=== PATIENT | female | born 1985 | race Caucasian/White ===

== ENCOUNTER 2017-06-10 20:59 | Inpatient (IN) | payer MEDICAID ==
[~2017-06-10] VITALS: Ht 157.5 cm; Wt 78.0 kg
[~2017-06-10 20:59] MED LIST: PREN1TAB49 PO
--- NOTE | 2017-06-10 21:51 | HP ---
Date/Time of Note Date/Time of Note DATE: 06/10/17 TIME: 21:49 OB - History Hx of Present Chief Complaint: contractions Estimated Due Date: Jul 08, 2017 : 4 Para: 33 Spontaneous : 0 Therapeutic : 0 Care: Good Care Obstetrical Complications: None Medical Complications: None Past Family/Social History * Past Medical, Surgical, Family and Obstetric Histories reviewed from chart. OB Admission Exam Physical Exam HEENT: WNL Heart: Rhythm Normal Lungs: Clear, Equal Abdomen: WNL Extremities: Normal Reflexes: Normal Cervical Dilatation: 3cm Effacement: 50% Station: -2 Membranes: Intact Heart Rate: 130's Accelerations: Accelerations Present Decelerations: No Decelerations Contractions on Admission: < 5 Minutes Apart OB Assessment/Plan Reason for admission: labor Plan: Other Other plan: IV magnesium sulfate IM betamethasone PATTIE BOOTH MD Jun 10, 2017 21:51
[2017-06-10] MEDS ORDERED: MAGNESIUM SULFATE 4 GM/100 ML 100 ML IV ONE (22:00)
--- NOTE | 2017-06-10 22:30 | TRIAGE ---
OB Triage Datetime Report Generated by CPN: 06/10/2017 22:30 Datetime: 06/10/2017 21:45 Stage of : OB Triage Vaginal Exam Dilatation (cms): 2.5 Effacement (%): 50 Station: -2 Exam By: LYLA LANDRUM Datetime: 06/10/2017 21:36 Stage of : OB Triage Maternal Assessment Level of Consciousness: Fully Conscious DTR's/Clonus: DTRs 2+; No Clonus DTR's/Clonus: DTRs Absent; DTRs 2+ Headache: Denies Headache: Denies Blurred Vision: No Respiratory Effort: Unlabored; Regular Rhythm; Equal Expansion Breath Sounds, Left: Clear and Equal Breath Sounds, Right: Clear and Equal Nausea/Vomiting: Denies RUQ Epigastric Pain: Denies Lower Extremities Edema: None Upper Extremities Edema: None Facial Edema: None Temperature Route: Oral Fall Risk Assessment History of Falling: (0) No Secondary Diagnosis: (0) No Ambulatory Aid: (0) Bedrest/Nurse Assist IV Therapy: (0) No Gait: (0) Normal/Bedrest/Immobile Mental Status: (0) Oriented to Own Ability Fall Score: 0 Fall Risk Score Definition: No Risk: No action required Labor Evaluation Frequency: 2-4 Monitor Mode: External Duration (sec)2399: 50-60 Quality: Moderate Pattern: Normal: <= 5 Contractions in 10 Minutes Resting Tone [place]: Relaxed Heart Rate FHR Baseline Rate: 135 Monitor Mode: External US Variability: Moderate 6-25 bpm Accelerations: 15X15 Decelerations: None Category: Category I Pain Assessment Pain Scale: 6 Pain Presence: Intermittent Pain Type: Contraction Pain Location: Abdomen Pain Goal: 3 Pain Relief Measures: Comfort Measures Datetime: 06/10/2017 21:30 Time of Arrival: 06/10/2017 20:50 EGA: 36.0 Arrived By: Ambulatory Arrived From: Home Chief Complaint: PT C/O ABDOMEN PAIN Movement: Present Contractions: Regular Time Contractions Began: 06/10/2017 17:00 Rupture of Membranes: Denies Vaginal Discharge: Denies Recent Sexual Intercouse: Denies Abdominal Trauma: Not Applicable Patient Complaints: Contractions Time Provider Notified: 06/10/2017 21:42 Provider Notified: DR BOOTH Initial Plan: [facility] , INITIAL ASSESSMENT, NOTIFY
--- NOTE | 2017-06-10 22:43 | TRIAGE ---
OB Triage Datetime Report Generated by CPN: 06/10/2017 22:43 Datetime: 06/10/2017 22:20 Stage of : OB Triage Level of Consciousness: Fully Conscious DTR's/Clonus: DTRs 2+; No Clonus DTR's/Clonus: DTRs Absent; DTRs 2+ Headache: Denies Headache: Denies Breath Sounds, Left: Clear and Equal Breath Sounds, Right: Clear and Equal Nausea/Vomiting: Denies RUQ Epigastric Pain: Denies Frequency: 2-4 Monitor Mode: External Duration (sec)2399: 40-60 Quality: Moderate Pattern: Normal: <= 5 Contractions in 10 Minutes Resting Tone [place]: Relaxed FHR Baseline Rate: 135 Monitor Mode: External US Variability: Moderate 6-25 bpm Accelerations: 15X15 Decelerations: None Category: Category I Pain Scale: 6 Pain Presence: Intermittent Pain Type: Contraction Pain Location: Abdomen Pain Goal: 3 Pain Relief Measures: Comfort Measures Datetime: 06/10/2017 21:42 Stage of : OB Triage Dilatation (cms): 2.5 Effacement (%): 50 Station: -2 Exam By: DR BOOTH Datetime: 06/10/2017 21:36 Fall Score: 0 Fall Risk Score Definition: No Risk: No action required Datetime: 06/10/2017 21:30 EGA: 36.0 Datetime: 06/10/2017 21:17 Stage of : OB Triage
[2017-06-10] MEDS: LACTATED RINGER'S 1,000 ML IV SCH (22:56)
[2017-06-10 23:07] LABS: BASOPHILS % 0.1 % (0.0-2.0); EOSINOPHILS # 0.1 10^3/ul (0.0-0.5); EOSINOPHILS % 1.2 % (0.0-7.0); HEMATOCRIT 33.6 % (37.0-47.0); HEMOGLOBIN 11.1 g/dl (12.0-16.0); LYMPHOCYTES # 1.7 10^3/ul (0.8-2.9); LYMPHOCYTES % 24.8 % (15.0-51.0); MEAN CORPUSCULAR HEMOGLOBIN 31.3 pg (29.0-33.0); MEAN CORPUSCULAR VOLUME 94.6 fl (82.0-101.0); MEAN PLATELET VOLUME 12.9 fl (7.4-10.4); MONOCYTE # 0.5 10^3/ul (0.3-0.9); MONOCYTES % 7.8 % (0.0-11.0); NEUTROPHIL # 4.6 10^3/ul (1.6-7.5); NEUTROPHILS % 65.7 % (39.0-77.0); PLATELET COUNT 146 10^3/UL (140-415); RED BLOOD COUNT 3.55 10^6/ul (4.20-5.40); RED CELL DISTRIBUTION WIDTH 13.7 % (11.5-14.5); WHITE BLOOD COUNT 6.9 10^3/ul (4.8-10.8)
[2017-06-10] MEDS: BETAMET NA PHOS/AC(6 MG/ML) 5ML INJ IM SCH (23:08)
[2017-06-10 23:19] VITALS: Ht 157.5 cm; Wt 78.0 kg
[2017-06-10 23:20] VITALS: BP 93/56; PULSE 80; RESP 18
[2017-06-10 23:28] LABS: INR 0.87; PROTIME 11.8 Sec (12.2-14.2); PT RATIO 0.9
[2017-06-10 23:29] LABS: PARTIAL THROMBOPLASTIN TIME 27.3 Sec (25.0-35.0)
--- NOTE | 2017-06-10 23:43 | RADRPT ---
PROCEDURE: US OB. CLINICAL INDICATION: labor at 36-week gestational age. TECHNIQUE: Multiple sonographic images of the uterus were obtained. The images were revi ewed on a PACS workstation. COMPARISON: No prior studies are available for comparison. FINDINGS: There is a single live intrauterine gestation. heart rate is 168 beats per minute. Measurements were made in order to determine age. The results are as follows: BPD = 8.20 cm. HC = 30.25 cm. AC = 32.11 cm. FL = 7.00 cm. Estimated weight is 2664 +/- 400 grams. LMP growth percentile is 34 %. Menstrual age by ultrasound dates is 34 weeks 4 days. The estimated date of delivery is 07/18/2017. Amniotic fluid index is 6.5 cm. Position is cephalic and placenta is left lateral grade II. There is no evidence for an abruption or placenta previa. IMPRESSION: 1. Single live intrauterine gestation of 34 weeks 4 days menstrual age by ultrasound dates. 2. The estimated date of delivery is 07/18/2017. RPTAT: QQ .Miguel Birmingham MD, MD Date Time Electronically viewed and signed by .Miguel Birmingham MD, on 06/10/2017 23:43 .R/
[2017-06-11] MEDS: MAGNESIUM SULFATE 20 GM/500 ML 500 ML IV SCH ×3 (00:13→18:30)
[2017-06-11] MEDS: LACTATED RINGER'S 1,000 ML IV SCH ×3 (08:32→21:50)
[2017-06-11] MEDS: PRENATAL VITAMIN PO SCH (08:33)
--- NOTE | 2017-06-11 17:50 | QN ---
Documentation Comment 32 years old EDC July 08 was admitted for labor with ANOOP 6.5, she was placed on magnesium sulfate for labor, she still has occasional contraction but not strong ,pelvic examination cervix ,2CM 50-60% effaced vertex at -2 station there has been no cervical change since admission however since her amniotic fluid is low at 6.5 level Recommending to repeat ultrasound for ANOOP in the morning if ANOOP is 10 or higher she may be discharged home, if ANOOP is at the same level or lower considering perinatology consult . ASHLEY BAEKR MD Jun 11, 2017 17:46
--- NOTE | 2017-06-11 18:04 | RADRPT ---
PROCEDURE: US OB. CLINICAL INDICATION: labor, premature rupture of membranes TECHNIQUE: Transabdominal OB views of the pelvis are available for review. COMPARISON: June 10, 2017 FINDINGS: Within the uterus, there is a single, live intrauterine . The presentation is cephalic. Th e heart rate is 123 beats per minute. The amniotic fluid index in four quadrants is 8.5 cm. The placenta is noted to be left lateral and grade 3. There are no findings of abruption or previa. The biophysical profile score is 8/8. IMPRESSION: 1. Single live intrauterine with an amniotic fluid index of 8.5 cm. The biophysical prof ile score is 8/8. 2. The placenta is left lateral and grade 3. There are no findings of abruption or previa. RPTAT: QQ .Temitope Mayberry MD, Date Time Electronically viewed and signed by .Temitope Mayberry MD, on 06/11/2017 18:03 .F/
[2017-06-11] MEDS: BETAMET NA PHOS/AC(6 MG/ML) 5ML INJ IM SCH (23:02)
--- NOTE | 2017-06-12 08:39 | RADRPT ---
PROCEDURE: US evaluation of amniotic fluid volume. CLINICAL INDICATION: Low amniotic fluid volume. TECHNIQUE: Multiple sonographic images of the gravid uterus were obtained utilizing birch-scale arpita ging. Sagittal and transverse images were obtained. The images were reviewed on a PACS workstation . ANOOP was measured. COMPARISON: 06/11/2017. FINDINGS: There is a single live intrauterine . heart rate is 121 beats per minute. Position is cephalic. Placenta is fundal grade II with no abruption or previa. ANOOP is 8.9 cm. (Normal = 5-20 cm.) IMPRESSION: 1. ANOOP is 8.9 cm. RPTAT: QQ .Miguel Birmingham MD, MD Date Time Electronically viewed and signed by .Miguel Birmingham MD, on 06/12/2017 08:39 .R/
[2017-06-12] MEDS: PRENATAL VITAMIN PO SCH (09:58)
[2017-06-12] MEDS: LACTATED RINGER'S 1,000 ML IV SCH (09:58)
--- NOTE | 2017-06-12 11:28 | PDOCDIS ---
Discharge Instructions CONDITION Patient Condition: Good HOME CARE INSTRUCTIONS: Diet Instructions: Regular ACTIVITY: Activity Restrictions: No Sexual Activity Bathing Restrictions: Shower FOLLOW UP/APPOINTMENTS Follow-up Plan Patient discharged home at 36 6 weeks plus with the recommendation to be seen at perinatology clinic follow-up on amniotic fluid index 2 times per week, advised oral hydration , keep to appointment for Friday triage unit for NST ASHLEY PITTMAN MD Jun 12, 2017 11:28
--- NOTE | 2017-06-12 11:39 | DS ---
Date/Time of Note Date/Time of Note DATE: 06/12/17 TIME: 11:30 Discharge Summary Admission/Discharge Info Admit Date/Time Jun 10, 2017 at 21:42 Discharge Date/Time 08/2017 at 11:00 Discharge Diagnosis 36 weeks plus gestation at first she was admitted for possible labor during the evaluation noted low ANOOP she was placed on magnesium sulfate to abort traction, received IV hydration today her ANOOP E.9 heart tracing within normal, network cabler recommended to be discharged home with follow-up instruction seen at perinatology clinic 2 times per week follow-up on her amniotic fluid index. Patient Condition: Good Consults Perinatologist Procedures Treatment for term labor, low ANOOP Hx of Present Illness 6 weeks 2 days in labor workup for amniotic fluid index [facility] responded well to the treatment Home Meds Reported Medications Vits W-Ca,Fe,Fa(<1MG) () 1 Tab Tablet, 1 TAB PO DAILY 10/09/12 Follow-up Plan Patient discharged home at 36 weeks ,2 days with recommendation to be seen at perinatology clinic for follow-up on her amniotic fluid index 2 times per week, advised oral hydration , to keep appointment for Friday with triage unit for NST ANOOP. Primary Care Provider Care Physician No Primary Time spent on discharge: < 30 minutes Pending Labs Laboratory Tests Test 06/11/17 12:01 06/11/17 18:05 Magnesium Level 5.0mg/dl (1.7-2.5) 5.3mg/dl (1.7-2.5) ASHLEY BAKER MD Jun 12, 2017 11:39
== END 2017-06-12 17:40 | disposition home or self-care (01) | DRG 780 ==
LOC: OBT 20:59 → L-D 21:00 → OBG 21:42 → OBT 21:42
PROVIDERS: ADMIT Obstetrics & Gynecology; ATTEND Obstetrics & Gynecology
DX: O47.03 False labor before 37 completed weeks of gestation, third trimester (principal); Z3A.33 33 weeks gestation of pregnancy
CPT/HCPCS: 76815; 76818; 83735; 85025; 85610; 85730; 86900; 86901; G0463; J0702; J3475; J7120

== ENCOUNTER 2017-07-09 09:22 | Inpatient (IN) | payer MEDICAID ==
[~2017-07-09] VITALS: Ht 157.5 cm; Wt 78.5 kg
[2017-07-09 09:36] VITALS: BP 104/69; PULSE 97; RESP 18; Ht 157.5 cm; Wt 78.5 kg
--- NOTE | 2017-07-09 10:12 | TRIAGE ---
OB Triage Datetime Report Generated by CPN: 07/09/2017 10:10 Datetime: 07/09/2017 09:40 Vaginal Exam Dilatation (cms): 4.0 Effacement (%): 70 Station: -2 Exam By: maty Vaginal Bleeding: Normal Show Cervix, Consistency: Soft Cervix, Position: Midposition Datetime: 07/09/2017 09:33 Assessment Type: Triage Maternal Assessment Level of Consciousness: Fully Conscious DTR's/Clonus: DTRs 2+; No Clonus Headache: Denies Blurred Vision: No Respiratory Effort: Unlabored; Regular Rhythm; Equal Expansion Breath Sounds, Left: Clear and Equal Breath Sounds, Right: Clear and Equal Nausea/Vomiting: Denies RUQ Epigastric Pain: Denies Lower Extremities Edema: None Degree: None Upper Extremities Edema: None Degree: None Facial Edema: None Fall Risk Assessment History of Falling: (0) No Secondary Diagnosis: (0) No Ambulatory Aid: (0) Bedrest/Nurse Assist IV Therapy: (20) Yes Gait: (0) Normal/Bedrest/Immobile Mental Status: (0) Oriented to Own Ability Fall Score: 20 Fall Risk Score Definition: No Risk: No action required Datetime: 07/09/2017 09:32 Time of Arrival: 07/09/2017 09:14 EGA: 40.1 Arrived By: Ambulatory Arrived From: Home Chief Complaint: PT HERE C/O UC'S SINCE 0600 Movement: Present Contractions: Irregular Rupture of Membranes: Denies Vaginal Bleeding: None Vaginal Discharge: Denies Recent Sexual Intercouse: Denies Abdominal Trauma: Not Applicable Patient Complaints: Contractions; Cramping; Back Pain Time Provider Notified: 07/09/2017 10:00 Provider Notified: OLIVIA Initial Plan: SVE/EFM Datetime: 07/09/2017 09:30 Monitor Mode: External Monitor Mode: External US Datetime: 06/12/2017 17:40 Labor Evaluation Frequency: 0 Monitor Mode: External Resting Tone [employer]: Relaxed Heart Rate FHR Baseline Rate: 130 Monitor Mode: External US FHR Baseline Changes: No Baseline Change Variability: Moderate 6-25 bpm Accelerations: 15X15 Decelerations: None Category: Category I Datetime: 06/12/2017 17:27 Labor Evaluation Frequency: 0 Monitor Mode: External Resting Tone [employer]: Relaxed Heart Rate FHR Baseline Rate: 120 Monitor Mode: External US FHR Baseline Changes: No Baseline Change Variability: Moderate 6-25 bpm Accelerations: 15X15 Decelerations: None Category: Category I Datetime: 06/12/2017 16:23 Labor Evaluation Frequency: 0 Monitor Mode: External Pattern: Normal: <= 5 Contractions in 10 Minutes Resting Tone [employer]: Relaxed Heart Rate FHR Baseline Rate: 120 Monitor Mode: External US FHR Baseline Changes: No Baseline Change Variability: Moderate 6-25 bpm Accelerations: 15X15 Decelerations: None Category: Category I Datetime: 06/12/2017 15:00 Labor Evaluation Frequency: 0 Monitor Mode: External Resting Tone [employer]: Relaxed Heart Rate FHR Baseline Rate: 120 Monitor Mode: External US FHR Baseline Changes: No Baseline Change Variability: Moderate 6-25 bpm Accelerations: 15X15 Decelerations: None Category: Category I Datetime: 06/12/2017 14:31 Stage of : OB Triage Datetime: 06/12/2017 14:00 Labor Evaluation Frequency: 0 Monitor Mode: External Resting Tone [employer]: Relaxed Heart Rate FHR Baseline Rate: 120 Monitor Mode: External US FHR Baseline Changes: No Baseline Change Variability: Moderate 6-25 bpm Accelerations: 15X15 Decelerations: None Category: Category I Datetime: 06/12/2017 13:14 Stage of : Antepartum Datetime: 06/12/2017 13:00 Labor Evaluation Frequency: 0 Monitor Mode: External Resting Tone [employer]: Relaxed Heart Rate FHR Baseline Rate: 120 Monitor Mode: External US FHR Baseline Changes: No Baseline Change Variability: Moderate 6-25 bpm Accelerations: 15X15 Decelerations: None Category: Category I Datetime: 06/12/2017 12:25 Labor Evaluation Frequency: 0 Monitor Mode: External Resting Tone [employer]: Relaxed Heart Rate FHR Baseline Rate: 120 Monitor Mode: External US FHR Baseline Changes: No Baseline Change Variability: Moderate 6-25 bpm Accelerations: 15X15 Decelerations: None Category: Category I Datetime: 06/12/2017 12:24 Stage of : Antepartum Temperature Route: Oral Pain Assessment Pain Scale: 0 Pain Presence: None/Denies Datetime: 06/12/2017 11:30 Labor Evaluation Frequency: 0 Monitor Mode: External Pattern: Normal: <= 5 Contractions in 10 Minutes Resting Tone [employer]: Relaxed Heart Rate FHR Baseline Rate: 120 Monitor Mode: External US FHR Baseline Changes: No Baseline Change Variability: Moderate 6-25 bpm Accelerations: 10X10 Decelerations: None Category: Category I Datetime: 06/12/2017 10:30 Labor Evaluation Frequency: 0 Monitor Mode: External Resting Tone [employer]: Relaxed Heart Rate FHR Baseline Rate: 120 Monitor Mode: External US FHR Baseline Changes: No Baseline Change Variability: Moderate 6-25 bpm Accelerations: 15X15 Decelerations: None Category: Category I Datetime: 06/12/2017 10:00 Labor Evaluation Frequency: IRREG Monitor Mode: External Resting Tone [employer]: Relaxed Heart Rate FHR Baseline Rate: 120 Monitor Mode: External US FHR Baseline Changes: No Baseline Change Variability: Moderate 6-25 bpm Accelerations: 15X15 Decelerations: None Category: Category I Datetime: 06/12/2017 09:29 Labor Evaluation Frequency: 3-5 Monitor Mode: External Duration (sec)2399: 40=80 Quality: Mild Resting Tone [employer]: Relaxed Heart Rate FHR Baseline Rate: 130 Monitor Mode: External US FHR Baseline Changes: No Baseline Change Variability: Moderate 6-25 bpm Accelerations: 15X15 Decelerations: None Category: Category I Datetime: 06/12/2017 08:10 Monitor Mode: External Quality: Mild Resting Tone [employer]: Relaxed Heart Rate FHR Baseline Rate: 125 Monitor Mode: External US FHR Baseline Changes: No Baseline Change Variability: Moderate 6-25 bpm Accelerations: 15X15 Decelerations: None Category: Category I Datetime: 06/12/2017 08:09 Stage of : Antepartum Temperature Route: Oral Pain Assessment Pain Scale: 0 Pain Presence: None/Denies Pain Goal: 0 Datetime: 06/12/2017 08:06 Assessment Type: Ongoing Assessment Maternal Assessment Level of Consciousness: Fully Conscious DTR's/Clonus: DTRs 2+; No Clonus Headache: Denies Blurred Vision: No Respiratory Effort: Unlabored; Regular Rhythm; Equal Expansion Breath Sounds, Left: Clear and Equal Breath Sounds, Right: Clear and Equal Nausea/Vomiting: Denies RUQ Epigastric Pain: Denies Degree: None Upper Extremities Edema: None Degree: None Facial Edema: None Fall Risk Assessment History of Falling: (0) No Secondary Diagnosis: (0) No Ambulatory Aid: (0) Bedrest/Nurse Assist IV Therapy: (20) Yes Gait: (0) Normal/Bedrest/Immobile Mental Status: (0) Oriented to Own Ability Fall Score: 20 Fall Risk Score Definition: No Risk: No action required Datetime: 06/12/2017 06:55 Labor Evaluation Frequency: x3 Monitor Mode: External Duration (sec)2399: 40-60 Quality: Mild Resting Tone [employer]: Relaxed Contraction Comments: pt without complaint of uc pain. Heart Rate FHR Baseline Rate: 120 Monitor Mode: External US FHR Baseline Changes: No Baseline Change Variability: Moderate 6-25 bpm Accelerations: 15X15 Decelerations: None Category: Category I Datetime: 06/12/2017 06:00 Labor Evaluation Frequency: x1 Monitor Mode: External Duration (sec)2399: 50 Quality: Mild Resting Tone [employer]: Relaxed Contraction Comments: pt without complaint of uc pain. Heart Rate FHR Baseline Rate: 125 Monitor Mode: External US FHR Baseline Changes: No Baseline Change Variability: Moderate 6-25 bpm Accelerations: 15X15 Decelerations: None Category: Category I Datetime: 06/12/2017 05:48 Stage of : Antepartum Temperature Route: Oral Datetime: 06/12/2017 05:00 Labor Evaluation Frequency: irritability x 1 Monitor Mode: External Duration (sec)2399: 50 Quality: Mild Resting Tone [employer]: Relaxed Contraction Comments: pt without complaint of uc pain. Heart Rate FHR Baseline Rate: 120 Monitor Mode: External US FHR Baseline Changes: No Baseline Change Variability: Moderate 6-25 bpm Accelerations: 15X15 Decelerations: None Category: Category I Datetime: 06/12/2017 04:00 Labor Evaluation Frequency: irritability Monitor Mode: External Resting Tone [employer]: Relaxed Contraction Comments: pt without complaint Heart Rate FHR Baseline Rate: 120 Monitor Mode: External US FHR Baseline Changes: No Baseline Change Variability: Moderate 6-25 bpm Accelerations: 15X15 Decelerations: Variable Category: Category II Datetime: 06/12/2017 03:00 Labor Evaluation Frequency: x1 Monitor Mode: External Duration (sec)2399: 40 Quality: Mild Resting Tone [employer]: Relaxed Contraction Comments: pt without complaint of uc pain. Heart Rate FHR Baseline Rate: 120 Monitor Mode: External US FHR Baseline Changes: No Baseline Change Variability: Moderate 6-25 bpm Accelerations: 15X15 Decelerations: None Category: Category I Datetime: 06/12/2017 02:00 Labor Evaluation Frequency: x1 Monitor Mode: External Duration (sec)2399: 50 Quality: Mild Resting Tone [employer]: Relaxed Contraction Comments: pt without complaint of uc pain. Heart Rate FHR Baseline Rate: 125 Monitor Mode: External US FHR Baseline Changes: No Baseline Change Variability: Moderate 6-25 bpm Accelerations: 15X15 Decelerations: None Category: Category I Datetime: 06/12/2017 01:00 Labor Evaluation Frequency: x1 Monitor Mode: External Duration (sec)2399: 130 Quality: Mild Resting Tone [employer]: Relaxed Contraction Comments: pt without complaint of uc pain. Heart Rate FHR Baseline Rate: 120 Monitor Mode: External US FHR Baseline Changes: No Baseline Change Variability: Moderate 6-25 bpm Accelerations: 15X15 Decelerations: None Category: Category I Datetime: 06/12/2017 00:00 Labor Evaluation Frequency: none Monitor Mode: External Resting Tone [employer]: Relaxed Heart Rate FHR Baseline Rate: 120 Monitor Mode: External US FHR Baseline Changes: No Baseline Change Variability: Moderate 6-25 bpm Accelerations: 15X15 Decelerations: None Category: Category I Datetime: 06/11/2017 23:00 Labor Evaluation Frequency: none Monitor Mode: External Resting Tone [employer]: Relaxed Heart Rate FHR Baseline Rate: 125 Monitor Mode: External US FHR Baseline Changes: No Baseline Change Variability: Moderate 6-25 bpm Accelerations: 15X15 Decelerations: None Category: Category I Datetime: 06/11/2017 22:00 Labor Evaluation Frequency: none Monitor Mode: External Resting Tone [employer]: Relaxed Heart Rate FHR Baseline Rate: 125 Monitor Mode: External US FHR Baseline Changes: No Baseline Change Variability: Moderate 6-25 bpm Accelerations: 15X15 Decelerations: Variable Category: Category II Datetime: 06/11/2017 21:00 Labor Evaluation Frequency: none Monitor Mode: External Resting Tone [employer]: Relaxed Heart Rate FHR Baseline Rate: 125 Monitor Mode: External US FHR Baseline Changes: No Baseline Change Variability: Moderate 6-25 bpm Accelerations: 15X15 Decelerations: None Category: Category I Datetime: 06/11/2017 20:19 Assessment Type: Ongoing Assessment Maternal Assessment Level of Consciousness: Fully Conscious DTR's/Clonus: DTRs 2+; No Clonus Headache: Denies Blurred Vision: No Respiratory Effort: Unlabored; Regular Rhythm; Equal Expansion Breath Sounds, Left: Clear and Equal Breath Sounds, Right: Clear and Equal Nausea/Vomiting: Denies RUQ Epigastric Pain: Denies Lower Extremities Edema: Right Lower Extremity Degree: 1+ Upper Extremities Edema: None Degree: None Facial Edema: None Fall Risk Assessment History of Falling: (0) No Secondary Diagnosis: (0) No Ambulatory Aid: (0) Bedrest/Nurse Assist Gait: (0) Normal/Bedrest/Immobile Mental Status: (0) Oriented to Own Ability Datetime: 06/11/2017 20:18 Stage of : Antepartum Temperature Route: Oral Datetime: 06/11/2017 20:00 Labor Evaluation Frequency: none Monitor Mode: External Resting Tone [employer]: Relaxed Heart Rate FHR Baseline Rate: 125 Monitor Mode: External US FHR Baseline Changes: No Baseline Change Variability: Moderate 6-25 bpm Accelerations: 15X15 Decelerations: None Category: Category I Pain Assessment Pain Scale: 0 Pain Presence: None/Denies Datetime: 06/11/2017 19:02 Assessment Type: Transfer/Discharge Datetime: 06/11/2017 18:58 Maternal Assessment Level of Consciousness: Fully Conscious DTR's/Clonus: DTRs 1+ Headache: Denies Blurred Vision: No Nausea/Vomiting: Denies RUQ Epigastric Pain: Denies Facial Edema: None Labor Evaluation Frequency: 9-12 Monitor Mode: External Duration (sec)2399: 40-60 Quality: Mild Resting Tone [employer]: Relaxed Heart Rate FHR Baseline Rate: 120 Monitor Mode: External US Variability: Moderate 6-25 bpm Accelerations: 15X15 Decelerations: None Category: Category I Comments: reactive nst, bpp 8/8, miranda 8.5, dr jean called and received orders to d/c magnesium cuenca lfate and watch overnight, to reassess in a.m., family told of plan of care Pain Assessment Pain Scale: 3 Pain Presence: Intermittent Pain Type: Cramping Pain Location: Abdomen; Back; Perineum Pain Goal: 3 Pain Relief Measures: Comfort Measures Datetime: 06/11/2017 17:30 Vaginal Exam Dilatation (cms): 2.0 Effacement (%): 50 Station: -2 Exam By: dr jean Vaginal Bleeding: None Cervix, Consistency: Soft Cervix, Position: Posterior Datetime: 06/11/2017 17:00 Maternal Assessment Level of Consciousness: Fully Conscious DTR's/Clonus: DTRs 1+ Headache: Denies Blurred Vision: Yes Nausea/Vomiting: Denies RUQ Epigastric Pain: Denies Facial Edema: None Labor Evaluation Frequency: 7-12 Monitor Mode: External Duration (sec)2399: 60-80 Quality: Mild Pattern: Normal: <= 5 Contractions in 10 Minutes Resting Tone [employer]: Relaxed Heart Rate FHR Baseline Rate: 120 Monitor Mode: External US Variability: Moderate 6-25 bpm Accelerations: 10X10 Decelerations: None Category: Category I Comments: a pumps placed on pt, pts family at bedside Pain Assessment Pain Scale: 4 Pain Presence: Intermittent Pain Type: Cramping Pain Location: Abdomen; Back; Perineum Pain Goal: 4 Pain Relief Measures: Comfort Measures Datetime: 06/11/2017 16:00 Maternal Assessment Level of Consciousness: Fully Conscious DTR's/Clonus: DTRs 1+ Headache: Denies Blurred Vision: Yes Nausea/Vomiting: Denies RUQ Epigastric Pain: Denies Facial Edema: None Labor Evaluation Frequency: 7-12 Monitor Mode: External Duration (sec)2399: 40-60 Quality: Mild Resting Tone [employer]: Relaxed Heart Rate FHR Baseline Rate: 120 Monitor Mode: External US Variability: Moderate 6-25 bpm Accelerations: 15X15 Decelerations: None Category: Category I Pain Assessment Pain Scale: 3 Pain Presence: Intermittent Pain Type: Cramping Pain Location: Abdomen; Back; Perineum Pain Goal: 3 Pain Relief Measures: Comfort Measures Datetime: 06/11/2017 15:00 Maternal Assessment Level of Consciousness: Fully Conscious DTR's/Clonus: DTRs 1+ Headache: Denies Blurred Vision: Yes Nausea/Vomiting: Denies RUQ Epigastric Pain: Denies Facial Edema: None Labor Evaluation Frequency: 0 Monitor Mode: External Duration (sec)2399: 0 Resting Tone [employer]: Relaxed Heart Rate FHR Baseline Rate: 120 Monitor Mode: External US Variability: Moderate 6-25 bpm Accelerations: 10X10 Decelerations: None Category: Category I Pain Assessment Pain Scale: 3 Pain Presence: Intermittent Pain Type: Cramping Pain Location: Abdomen Pain Goal: 3 Pain Relief Measures: Comfort Measures Datetime: 06/11/2017 14:00 Maternal Assessment Level of Consciousness: Fully Conscious DTR's/Clonus: DTRs 1+ Headache: Denies Blurred Vision: No Nausea/Vomiting: Denies RUQ Epigastric Pain: Denies Facial Edema: None Labor Evaluation Frequency: 10-15 Monitor Mode: External Duration (sec)2399: 30-40 Quality: Mild Pattern: Normal: <= 5 Contractions in 10 Minutes Resting Tone [employer]: Relaxed Heart Rate FHR Baseline Rate: 120 Monitor Mode: External US Variability: Moderate 6-25 bpm Accelerations: 15X15 Decelerations: None Category: Category I Pain Assessment Pain Scale: 3 Pain Presence: None/Denies Pain Type: N/A Pain Goal: 3 Pain Relief Measures: Comfort Measures Pain Assessment Comments: "they're less than they were" pt told that Dr will come and see her toda y Datetime: 06/11/2017 13:00 Maternal Assessment Level of Consciousness: Fully Conscious DTR's/Clonus: DTRs Absent Headache: Denies Blurred Vision: No Nausea/Vomiting: Denies RUQ Epigastric Pain: Denies Facial Edema: None Labor Evaluation Frequency: 7-12 Monitor Mode: External Duration (sec)2399: 40-60 Quality: Mild Pattern: Normal: <= 5 Contractions in 10 Minutes Resting Tone [employer]: Relaxed Heart Rate FHR Baseline Rate: 130 Monitor Mode: External US Variability: Moderate 6-25 bpm Accelerations: 15X15 Decelerations: None Category: Category I Pain Assessment Pain Scale: 6 Pain Presence: Intermittent Pain Type: Cramping Pain Location: Abdomen; Back; Perineum Pain Goal: 6 Pain Relief Measures: Comfort Measures Pain Assessment Comments: pt eating without grimacing Datetime: 06/11/2017 12:00 Maternal Assessment Level of Consciousness: Fully Conscious DTR's/Clonus: DTRs Absent Headache: Denies Blurred Vision: No Nausea/Vomiting: Denies RUQ Epigastric Pain: Denies Facial Edema: None Labor Evaluation Frequency: 6-8 Monitor Mode: External Duration (sec)2399: 20-40 Quality: Mild Pattern: Normal: <= 5 Contractions in 10 Minutes Resting Tone [employer]: Relaxed Contraction Comments: spacing out a bit Heart Rate FHR Baseline Rate: 125 Monitor Mode: External US Variability: Moderate 6-25 bpm Accelerations: 15X15 Decelerations: None Category: Category I Pain Assessment Pain Scale: 6 Pain Presence: Intermittent Pain Type: Cramping Pain Location: Abdomen Pain Goal: 6 Pain Relief Measures: Comfort Measures Datetime: 06/11/2017 11:00 Maternal Assessment Level of Consciousness: Fully Conscious DTR's/Clonus: DTRs 1+ Headache: Denies Blurred Vision: Yes Nausea/Vomiting: Denies RUQ Epigastric Pain: Denies Facial Edema: None Labor Evaluation Frequency: 10-15 Monitor Mode: External Duration (sec)2399: 20-60 Quality: Mild Resting Tone [employer]: Relaxed Heart Rate FHR Baseline Rate: 120 Monitor Mode: External US Variability: Moderate 6-25 bpm Accelerations: 15X15 Decelerations: None Category: Category I Pain Assessment Pain Scale: 5 Pain Presence: Intermittent Pain Type: Cramping Pain Location: Abdomen; Back; Perineum Pain Goal: 5 Pain Relief Measures: Comfort Measures Pain Assessment Comments: "they seem to be getting less" Datetime: 06/11/2017 09:30 Maternal Assessment Level of Consciousness: Fully Conscious DTR's/Clonus: DTRs Absent Headache: Denies Blurred Vision: No Nausea/Vomiting: Denies RUQ Epigastric Pain: Denies Facial Edema: None Labor Evaluation Frequency: 4-5 Monitor Mode: External Duration (sec)2399: 10-20 Quality: Mild Pattern: Normal: <= 5 Contractions in 10 Minutes Resting Tone [employer]: Relaxed Heart Rate FHR Baseline Rate: 120 Monitor Mode: External US Variability: Moderate 6-25 bpm Accelerations: 15X15 Decelerations: None Category: Category I Pain Assessment Pain Scale: 6 Pain Presence: Intermittent Pain Type: Contraction Pain Location: Abdomen; Back; Perineum Pain Goal: 6 Pain Relief Measures: Comfort Measures Pain Assessment Comments: no grimace, pt states "pain is equal to what it was" Datetime: 06/11/2017 08:26 Maternal Assessment Level of Consciousness: Fully Conscious DTR's/Clonus: DTRs Absent Headache: Denies Blurred Vision: No Respiratory Effort: Unlabored Nausea/Vomiting: Denies RUQ Epigastric Pain: Denies Facial Edema: None Labor Evaluation Frequency: 3-5 Monitor Mode: External Duration (sec)2399: 20-30 Quality: Mild Resting Tone [employer]: Relaxed Heart Rate FHR Baseline Rate: 130 Monitor Mode: External US Variability: Moderate 6-25 bpm Accelerations: 15X15 Decelerations: None Category: Category I Pain Assessment Pain Scale: 6 Pain Presence: Intermittent Pain Type: Contraction Pain Location: Abdomen; Back; Perineum Pain Goal: 6 Pain Relief Measures: Comfort Measures Pain Assessment Comments: sleeping through uc's Membrane Status: Intact Datetime: 06/11/2017 07:49 Assessment Type: Ongoing Assessment Maternal Assessment Level of Consciousness: Fully Conscious DTR's/Clonus: DTRs 2+; No Clonus Headache: Denies Blurred Vision: No Respiratory Effort: Unlabored; Regular Rhythm; Equal Expansion Breath Sounds, Left: Clear and Equal Breath Sounds, Right: Clear and Equal Nausea/Vomiting: Denies RUQ Epigastric Pain: Denies Lower Extremities Edema: None Upper Extremities Edema: None Facial Edema: None Fall Risk Assessment History of Falling: (0) No Secondary Diagnosis: (0) No Ambulatory Aid: (0) Bedrest/Nurse Assist IV Therapy: (20) Yes Gait: (0) Normal/Bedrest/Immobile Mental Status: (0) Oriented to Own Ability Fall Score: 20 Fall Risk Score Definition: No Risk: No action required Datetime: 06/11/2017 07:29 Maternal Assessment Level of Consciousness: Fully Conscious DTR's/Clonus: DTRs 2+ Headache: Denies Blurred Vision: No Respiratory Effort: Unlabored Breath Sounds, Left: Clear and Equal Breath Sounds, Right: Clear and Equal Nausea/Vomiting: Denies RUQ Epigastric Pain: Denies Facial Edema: None Labor Evaluation Frequency: 2-4 Monitor Mode: External Duration (sec)2399: 20-40 Quality: Mild Pattern: Normal: <= 5 Contractions in 10 Minutes Resting Tone [employer]: Relaxed Heart Rate FHR Baseline Rate: 120 Monitor Mode: External US Variability: Moderate 6-25 bpm Accelerations: 15X15 Decelerations: None Category: Category I Pain Assessment Pain Scale: 7 Pain Presence: Intermittent Pain Type: Contraction Pain Location: Abdomen; Back; Perineum Pain Goal: 7 Pain Relief Measures: Comfort Measures Pain Assessment Comments: pt talking on the phone w family, able to smile and talk through uc's, r efusing pain med presently Membrane Status: Intact Datetime: 06/11/2017 06:43 Stage of : Antepartum Datetime: 06/11/2017 06:40 Stage of : Antepartum Pain Assessment Pain Scale: 8 Pain Presence: Intermittent Pain Type: Contraction Pain Location: Abdomen; Back Pain Relief Measures: Comfort Measures Vaginal Exam Dilatation (cms): 2.0 Effacement (%): 50 Station: -3 Exam By: ARTUR THOMASON Vaginal Bleeding: None Cervix, Position: Posterior Datetime: 06/11/2017 06:30 Assessment Type: Ongoing Assessment Maternal Assessment Level of Consciousness: Fully Conscious DTR's/Clonus: No Clonus Headache: Denies Blurred Vision: No Respiratory Effort: Unlabored; Regular Rhythm Breath Sounds, Left: Clear and Equal Breath Sounds, Right: Clear and Equal RUQ Epigastric Pain: Denies Lower Extremities Edema: Right Lower Extremity Degree: None Upper Extremities Edema: None Degree: None Facial Edema: None Datetime: 06/11/2017 06:15 Stage of : Antepartum Labor Evaluation Frequency: 2.5-3.5 Monitor Mode: External Duration (sec)2399: 50-100 Pattern: Normal: <= 5 Contractions in 10 Minutes Resting Tone [employer]: Relaxed Heart Rate FHR Baseline Rate: 120 Monitor Mode: External US Variability: Moderate 6-25 bpm Accelerations: 15X15 Decelerations: None Category: Category I Pain Assessment Pain Scale: 7 Pain Presence: Intermittent Pain Type: Contraction Pain Location: Abdomen; Back Pain Relief Measures: Comfort Measures Datetime: 06/11/2017 05:01 Stage of : Antepartum Labor Evaluation Frequency: 2-3 Monitor Mode: External Duration (sec)2399: 50-100 Pattern: Normal: <= 5 Contractions in 10 Minutes Resting Tone [employer]: Relaxed Heart Rate FHR Baseline Rate: 120 Monitor Mode: External US Variability: Moderate 6-25 bpm Accelerations: 15X15 Decelerations: None Category: Category I Pain Assessment Pain Scale: 7 Pain Presence: Intermittent Pain Type: Contraction Pain Location: Abdomen; Back Pain Relief Measures: Comfort Measures Datetime: 06/11/2017 04:30 Assessment Type: Ongoing Assessment Maternal Assessment Level of Consciousness: Fully Conscious DTR's/Clonus: No Clonus Headache: Denies Blurred Vision: No Respiratory Effort: Unlabored; Regular Rhythm Breath Sounds, Left: Clear and Equal Breath Sounds, Right: Clear and Equal RUQ Epigastric Pain: Denies Lower Extremities Edema: Right Lower Extremity Degree: None Upper Extremities Edema: None Degree: None Facial Edema: None Datetime: 06/11/2017 04:06 Stage of : Antepartum Datetime: 06/11/2017 04:03 Stage of : Antepartum Labor Evaluation Frequency: 2-3 Monitor Mode: External Duration (sec)2399: 50-70 Pattern: Normal: <= 5 Contractions in 10 Minutes Resting Tone [employer]: Relaxed Heart Rate FHR Baseline Rate: 120 Monitor Mode: External US Variability: Moderate 6-25 bpm Accelerations: 15X15 Decelerations: None Category: Category I Pain Assessment Pain Scale: 7 Pain Presence: Intermittent Pain Type: Contraction Pain Location: Abdomen; Back Pain Relief Measures: Comfort Measures Datetime: 06/11/2017 03:59 Stage of : Antepartum Vaginal Exam Dilatation (cms): 2.0 Effacement (%): 50 Station: -3 Exam By: ARTUR THOMASON Vaginal Bleeding: None Cervix, Consistency: Soft Cervix, Position: Posterior Datetime: 06/11/2017 03:15 Stage of : Antepartum Labor Evaluation Frequency: 1.5-3 Monitor Mode: External Duration (sec)2399: 50-100 Pattern: Normal: <= 5 Contractions in 10 Minutes Resting Tone [employer]: Relaxed Heart Rate FHR Baseline Rate: 120 Monitor Mode: External US Variability: Moderate 6-25 bpm Accelerations: 15X15 Decelerations: None Category: Category I Pain Assessment Pain Scale: 7 Pain Presence: Intermittent Pain Type: Burning Pain Location: Abdomen; Back Pain Relief Measures: Comfort Measures Datetime: 06/11/2017 02:29 Assessment Type: Ongoing Assessment Maternal Assessment Level of Consciousness: Fully Conscious DTR's/Clonus: No Clonus Headache: Denies Blurred Vision: No Respiratory Effort: Unlabored; Regular Rhythm Breath Sounds, Left: Clear and Equal Breath Sounds, Right: Clear and Equal RUQ Epigastric Pain: Denies Lower Extremities Edema: Right Lower Extremity Degree: None Upper Extremities Edema: None Degree: None Facial Edema: None Datetime: 06/11/2017 02:16 Stage of : Antepartum Labor Evaluation Frequency: 1.5-3 Monitor Mode: External Duration (sec)2399: 50-100 Pattern: Normal: <= 5 Contractions in 10 Minutes Resting Tone [employer]: Relaxed Heart Rate FHR Baseline Rate: 120 Monitor Mode: External US Variability: Moderate 6-25 bpm Accelerations: 15X15 Decelerations: None Category: Category I Pain Assessment Pain Scale: 7 Pain Presence: Intermittent Pain Type: Contraction Pain Location: Abdomen; Back Pain Relief Measures: Comfort Measures Datetime: 06/11/2017 01:17 Stage of : Antepartum Labor Evaluation Frequency: 2-3 Monitor Mode: External Duration (sec)2399: 50-80 Pattern: Normal: <= 5 Contractions in 10 Minutes Resting Tone [employer]: Relaxed Heart Rate FHR Baseline Rate: 120 Monitor Mode: External US Variability: Moderate 6-25 bpm Accelerations: 15X15 Decelerations: None Category: Category I Pain Assessment Pain Scale: 7 Pain Presence: Intermittent Pain Type: Contraction Pain Location: Abdomen; Back Pain Goal: 2 Pain Relief Measures: Comfort Measures Datetime: 06/11/2017 01:12 Vaginal Exam Dilatation (cms): 2.0 Effacement (%): 50 Station: -3 Exam By: DR BOOTH Datetime: 06/11/2017 00:23 Stage of : Antepartum Vaginal Exam Dilatation (cms): 2.0 Effacement (%): 50 Station: -3 Exam By: ARTUR Thomason Vaginal Bleeding: None Cervix, Consistency: Soft Cervix, Position: Posterior Datetime: 06/11/2017 00:17 Stage of : Antepartum Labor Evaluation Frequency: 2-5 Monitor Mode: External Duration (sec)2399: 40-70 Pattern: Normal: <= 5 Contractions in 10 Minutes Resting Tone [employer]: Relaxed Heart Rate FHR Baseline Rate: 120 Monitor Mode: External US Variability: Moderate 6-25 bpm Accelerations: Prolonged Decelerations: None Category: Category I Pain Assessment Pain Scale: 6 Pain Presence: Intermittent Pain Type: Contraction Pain Location: Abdomen; Back Pain Relief Measures: Comfort Measures Datetime: 06/11/2017 00:13 Stage of : Antepartum Datetime: 06/10/2017 23:43 Stage of : Antepartum Datetime: 06/10/2017 23:29 Assessment Type: Admission Assessment Vaginal Bleeding: None Maternal Assessment Level of Consciousness: Fully Conscious DTR's/Clonus: DTRs 2+; No Clonus Headache: Denies Blurred Vision: No Respiratory Effort: Unlabored; Regular Rhythm; Equal Expansion Breath Sounds, Left: Clear and Equal Breath Sounds, Right: Clear and Equal Nausea/Vomiting: Denies RUQ Epigastric Pain: Denies Lower Extremities Edema: Right Lower Extremity (Annotations: Patient states that her right foot barillas s been swollen since the beginning of her . ) Degree: None Upper Extremities Edema: None Degree: None Facial Edema: None Fall Risk Assessment History of Falling: (0) No Secondary Diagnosis: (0) No Ambulatory Aid: (0) Bedrest/Nurse Assist IV Therapy: (20) Yes Gait: (0) Normal/Bedrest/Immobile Mental Status: (0) Oriented to Own Ability Fall Score: 20 Fall Risk Score Definition: No Risk: No action required Labor Evaluation Frequency: 2.5-4 Duration (sec)2399: 50-60 Pattern: Normal: <= 5 Contractions in 10 Minutes Resting Tone [employer]: Relaxed Heart Rate FHR Baseline Rate: 125 Variability: Moderate 6-25 bpm Accelerations: Prolonged Decelerations: None Category: Category I Pain Assessment Pain Scale: 6 Pain Presence: Intermittent Pain Type: Contraction Pain Location: Abdomen; Back Pain Goal: 2 Datetime: 06/10/2017 23:28 Time of Arrival: 06/10/2017 22:30 EGA: 36.0 Arrived By: Wheelchair Datetime: 06/10/2017 23:14 Stage of : Antepartum Monitor Mode: External Monitor Mode: External US Datetime: 06/10/2017 23:10 Stage of : Antepartum Datetime: 06/10/2017 23:08 Stage of : Antepartum Datetime: 06/10/2017 21:36 Fall Score: 0 Fall Risk Score Definition: No Risk: No action required Datetime: 06/10/2017 21:30 EGA: 36.0
[2017-07-09] MEDS ORDERED: OXYTOCIN 30 UNITS/LR 500 ML IV PRN ×2 (10:30→18:00)
[2017-07-09] MEDS ORDERED: BUTORPHANOL 2 MG INJ IV PRN ×2 (10:30→18:00)
[2017-07-09] MEDS ORDERED: OXYTOCIN 30 UNITS/LR 500 ML IV SCH ×6 (10:30→18:00)
[2017-07-09] MEDS ORDERED: LACTATED RINGER'S 1,000 ML IV PRN ×2 (10:30→17:57)
[2017-07-09] MEDS ORDERED: CARBOPROST 250 MCG INJ IM PRN ×2 (10:30→18:00)
[2017-07-09] MEDS ORDERED: IBUPROFEN 600 MG TAB PO PRN ×2 (10:30→18:00)
[2017-07-09] MEDS ORDERED: MISOPROSTOL 200 MCG TAB PR PRN ×2 (10:30→18:00)
[2017-07-09] MEDS ORDERED: METHYLERGONOVINE 0.2 MG INJ IM PRN ×2 (10:30→18:00)
[2017-07-09] MEDS ORDERED: LIDOCAINE 1% (MPF) 30 ML INJ INJ PRN ×2 (10:30→18:00)
[2017-07-09] MEDS: LACTATED RINGER'S 1,000 ML IV SCH ×3 (10:35→17:57)
[2017-07-09 11:03] LABS: WHITE BLOOD COUNT 7.4 10^3/ul (4.8-10.8)
[2017-07-09 11:04] LABS: ABNORMAL IP MESSAGE 1; BASOPHILS % 0.3 % (0.0-2.0); EOSINOPHILS # 0.1 10^3/ul (0.0-0.5); EOSINOPHILS % 1.1 % (0.0-7.0); HEMATOCRIT 36.7 % (37.0-47.0); HEMOGLOBIN 12.7 g/dl (12.0-16.0); LYMPHOCYTES # 1.5 10^3/ul (0.8-2.9); LYMPHOCYTES % 20.4 % (15.0-51.0); MEAN CORPUSCULAR HEMOGLOBIN 32.4 pg (29.0-33.0); MEAN CORPUSCULAR HGB CONC 34.6 g/dl (32.0-37.0); MEAN CORPUSCULAR VOLUME 93.6 fl (82.0-101.0); MEAN PLATELET VOLUME 13.3 fl (7.4-10.4); MONOCYTE # 0.6 10^3/ul (0.3-0.9); MONOCYTES % 7.7 % (0.0-11.0); NEUTROPHIL # 5.1 10^3/ul (1.6-7.5); NEUTROPHILS % 69.8 % (39.0-77.0); PLATELET COUNT 154 10^3/UL (140-415); RED BLOOD COUNT 3.92 10^6/ul (4.20-5.40); RED CELL DISTRIBUTION WIDTH 13.6 % (11.5-14.5)
[2017-07-09 11:08] LABS: POSITIVE DIFF @See below
[2017-07-09 11:19] LABS: INR 0.89; PT RATIO 0.9
[2017-07-09 11:20] LABS: PARTIAL THROMBOPLASTIN TIME 24.7 Sec (25.0-35.0)
--- NOTE | 2017-07-09 16:02 | LDN ---
Date/Time of Note Date/Time of Note DATE: 07/09/17 TIME: 15:57 Delivery Summary Precipitous normal vaginal delivery of a baby boy from OA position by , baby's 9 and 9, placenta spontaneous expulsion inspected complete perineum and vagina inspected no laceration, estimated blood loss 200 cc Weeks of Gestation 40 weeks 1DAY Placenta Delivered: Spontaneously Meconium: none Episiotomy: No Laceration repair: None Anesthesia type: None Estimated blood loss: 200 Sponge & Needle done & correct: Yes All needle counts correct: Yes Any foreign bodies felt in the: No Problems: Delivery Information Sex Infant Sex: male Apgars 1 Minute: 9 5 Minute: 9 Suctioning Nose & mouth suctioned at joyce: Yes Delee suction performed: No Umbilical Cord Umbilical cord with: 3 Vessels Cord presentations: no nuchal cord Cord Blood was obtained: Yes ASHLEY BAKER MD Jul 09, 2017 16:02
--- NOTE | 2017-07-09 16:07 | HP ---
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 Rubella: immune RPR/VDRL: Negative GBS Status: Negative HBsAG: Negative OB Admission Exam Vital Signs Vital Signs Vital Signs Date Time Temp Pulse Resp B/P Pulse Ox O2 Delivery O2 Flow Rate FiO2 07/09/17 09:36 98.4 97 18 104/69 95 Room Air Physical Exam HEENT: WNL Heart: Rhythm Normal Lungs: Clear, Equal Abdomen: WNL Extremities: Normal Reflexes: Normal Cervical Dilatation: 4cm Effacement: 75% Station: -1 Membranes: Intact Heart Rate: 130's Accelerations: Accelerations Present Decelerations: No Decelerations Varibility: Moderate Contractions on Admission: < 5 Minutes Apart Intensity: Firm Last 72 hours Lab Results CBC & BMP 07/09/17 10:35 OB Assessment/Plan Reason for admission: active labor Plan: Expectant Management Other plan: 32 years old EDC July 08, 2017 admitted at 40 weeks and 1 day in active labor she transferred from triage to L&D anticipating normal vaginal delivery ASHLEY BAKER MD Jul 09, 2017 16:07
[2017-07-09 17:15] VITALS: BP 101/60; PULSE 69; RESP 17
[2017-07-09] MEDS: OXYTOCIN 30 UNITS/LR 500 ML IV SCH ×2 (17:57→20:47)
[2017-07-09] MEDS ORDERED: BENZOCAINE 20% 56 ML SPRAY TOP PRN (18:00)
[2017-07-09] MEDS ORDERED: WITCH HAZEL/GLYCERIN PAD PR PRN (18:00)
[2017-07-09] MEDS ORDERED: DIBUCAINE 1% 30 GM OINT PR PRN (18:00)
[2017-07-09] MEDS ORDERED: HYDROCODONE/APAP (5/325) TAB PO PRN ×2 (18:00)
[2017-07-09] MEDS: IBUPROFEN 600 MG TAB PO SCH (18:00)
[2017-07-09] MEDS ORDERED: LANOLIN 7 GM TUBE TOP PRN (18:00)
[2017-07-09] MEDS ORDERED: ACETAMINOPHEN 325 MG TAB PO PRN (18:00)
[2017-07-09] MEDS ORDERED: ONDANSETRON 4 MG INJ IV PRN (18:00)
[2017-07-09] MEDS ORDERED: OXYCODONE/ASPIRIN (4.88/325) TAB PO PRN ×2 (18:00)
[2017-07-09 20:00] VITALS: BP 103/62; PULSE 63; RESP 20
[2017-07-09] MEDS: SENNA/DOCUSATE NA (8.6MG/50MG) TAB PO SCH (20:46)
[2017-07-10] MEDS: IBUPROFEN 600 MG TAB PO SCH ×4 (00:21→17:12)
[2017-07-10 00:40] VITALS: BP 98/55; PULSE 64; RESP 20
[2017-07-10] MEDS: LACTATED RINGER'S 1,000 ML IV SCH (01:49)
--- NOTE | 2017-07-10 02:16 | RADRPT ---
PROCEDURE: US Lower extremity Venous right. CLINICAL INDICATION: Pain, positive Homans' sign TECHNIQUE: Multiple sonographic images of the right lower extremity deep venous system was obtaine d utilizing grayscale, color-flow, compressive sonography and doppler imaging with augmentation. Th e images were reviewed on a PACS workstation. COMPARISON: None. FINDINGS: There is normal compressibility and flow within right common femoral, femoral, popliteal, posterior tibial and peroneal veins. IMPRESSION: No sonographic evidence for right lower extremity deep venous thrombosis. RPTAT: HJES .Gilberto Naqvi MD, Date Time Electronically viewed and signed by .Gilberto Naqvi MD, on 07/10/2017 02:15 .S/
[2017-07-10 04:30] VITALS: BP 99/55; PULSE 70; RESP 20
[2017-07-10 07:40] VITALS: BP 97/55; PULSE 72; RESP 16
[2017-07-10] MEDS: SENNA/DOCUSATE NA (8.6MG/50MG) TAB PO SCH ×2 (08:53→21:26)
--- NOTE | 2017-07-10 10:23 | QN ---
Documentation Comment Normal vaginal delivery day 1 Afebrile Total signs are stable Abdomen soft, uterus firm, lochia normal, extremity normal Plan of a.m. discharge discussed with the patient ASHLEY BAKER MD Jul 10, 2017 10:23
[2017-07-10 10:30] LABS: ABNORMAL IP MESSAGE 1; BASOPHILS % 0.1 % (0.0-2.0); EOSINOPHILS # 0.1 10^3/ul (0.0-0.5); EOSINOPHILS % 0.8 % (0.0-7.0); HEMATOCRIT 37.6 % (37.0-47.0); HEMOGLOBIN 12.4 g/dl (12.0-16.0); LYMPHOCYTES # 1.4 10^3/ul (0.8-2.9); LYMPHOCYTES % 14.3 % (15.0-51.0); MEAN CORPUSCULAR HEMOGLOBIN 30.8 pg (29.0-33.0); MEAN CORPUSCULAR VOLUME 93.5 fl (82.0-101.0); MEAN PLATELET VOLUME 13.3 fl (7.4-10.4); MONOCYTE # 0.5 10^3/ul (0.3-0.9); MONOCYTES % 5.5 % (0.0-11.0); NEUTROPHIL # 7.4 10^3/ul (1.6-7.5); NEUTROPHILS % 78.5 % (39.0-77.0); PLATELET COUNT 141 10^3/UL (140-415); RED BLOOD COUNT 4.02 10^6/ul (4.20-5.40); RED CELL DISTRIBUTION WIDTH 13.7 % (11.5-14.5); WHITE BLOOD COUNT 9.4 10^3/ul (4.8-10.8)
[2017-07-10 10:36] LABS: POSITIVE DIFF @See below
[2017-07-10 15:00] VITALS: BP 100/58; PULSE 57; RESP 16
[2017-07-10 20:00] VITALS: BP 98/63; PULSE 68; RESP 18
[2017-07-11] MEDS: IBUPROFEN 600 MG TAB PO SCH ×4 (00:27→17:45)
[2017-07-11 04:20] VITALS: BP 107/59; PULSE 60; RESP 18
[2017-07-11 08:20] VITALS: BP 104/69; PULSE 65; RESP 18
[2017-07-11] MEDS ORDERED: MEASLES,MUMPS,RUBELLA VACCINE INJ SC* ONE (09:00)
--- NOTE | 2017-07-11 09:15 | PD.PPDC ---
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
--- NOTE | 2017-07-11 09:20 | DS ---
Date/Time of Note Date/Time of Note DATE: 07/11/17 TIME: 09:19 Discharge Summary Admission/Discharge Info Admit Date/Time Jul 09, 2017 at 10:04 Discharge Date/Time July 11, 2017 9:30 AM Discharge Diagnosis Post gael vaginal delivery day 2 Patient Condition: Good Procedures Normal vaginal delivery Hx of Present Illness Term Hospital Course Satisfactory recovery uneventful Home Meds Reported Medications Vits W-Ca,Fe,Fa(<1MG) () 1 Tab Tablet, 1 TAB PO DAILY 10/09/12 Follow-up Plan instructions given recommended to make appointment to be seen at the clinic in 2 weeks Primary Care Provider Care Physician No Primary Time spent on discharge: < 30 minutes Pending Labs Laboratory Tests Test 07/10/17 09:44 White Blood Count 9.410^3/ul (4.8-10.8) Red Blood Count 4.0210^6/ul (4.20-5.40) Hemoglobin 12.4g/dl (12.0-16.0) Hematocrit 37.6% (37.0-47.0) Mean Corpuscular Volume 93.5fl (82.0-101.0) Mean Corpuscular Hemoglobin 30.8pg (29.0-33.0) Mean Corpuscular Hemoglobin Concent 33.0g/dl (32.0-37.0) Red Cell Distribution Width 13.7% (11.5-14.5) Platelet Count 29748^3/UL (140-415) Mean Platelet Volume 13.3fl (7.4-10.4) Neutrophils % 78.5% (39.0-77.0) Lymphocytes % 14.3% (15.0-51.0) Monocytes % 5.5% (0.0-11.0) Eosinophils % 0.8% (0.0-7.0) Basophils % 0.1% (0.0-2.0) Nucleated Red Blood Cells % 0.0/100WBC (0.0-0.0) Neutrophils # 7.410^3/ul (1.6-7.5) Lymphocytes # 1.410^3/ul (0.8-2.9) Monocytes # 0.510^3/ul (0.3-0.9) Eosinophils # 0.110^3/ul (0.0-0.5) Basophils # 0.010^3/ul (0.0-0.1) Nucleated Red Blood Cells # 0.010^3/ul (0.0-0.0) ASHLEY BAKER MD Jul 11, 2017 09:20
[2017-07-11] MEDS: SENNA/DOCUSATE NA (8.6MG/50MG) TAB PO SCH ×2 (09:45→20:13)
[2017-07-11 16:55] VITALS: BP 104/70; PULSE 71; RESP 16
[2017-07-11 20:00] VITALS: BP 108/68; PULSE 72; RESP 17
== END 2017-07-11 22:30 | disposition home or self-care (01) | DRG 775 ==
LOC: OBT 09:22 → L-D 09:22 → OBT 10:14 → PP1 17:10
PROVIDERS: ADMIT Obstetrics & Gynecology; ATTEND Obstetrics & Gynecology
PROC: 10E0XZZ Delivery of Products of Conception, External Approach (ICD-10-PCS; principal; 2017-07-09)
DX: O80 Encounter for full-term uncomplicated delivery (principal); Z37.0 Single live birth; Z3A.40 40 weeks gestation of pregnancy
CPT/HCPCS: 85025; 85610; 85730; 86592; 86900; 86901; 93971; G0463; J2590; J7120

== ENCOUNTER 2018-11-29 13:42 | Emergency (ER) | payer MEDICAID ==
[~2018-11-29] VITALS: Wt 64.1 kg
[2018-11-29 13:57] VITALS: BP 113/75; PULSE 113; RESP 18
[2018-11-29] MEDS ORDERED: AMOX1TAB10 PO (15:42)
[2018-11-29] MEDS ORDERED: ACET500C5 PO (15:42)
[2018-11-29] MEDS ORDERED: PSEU120T11 PO (15:42)
--- NOTE | 2018-11-29 15:56 | ERD ---
ER Documentation Chief Complaint Chief Complaint L ear pain+ PAYNE x5d. no meds taken. HPI This is a 33-year-old female with a nonsignificant past medical history presents ED with left ear pain, left sinus pain and headache times 5 days. Patient admits to fevers, cough, congestion, runny nose. Denies abdominal pain, chest pain, shortness of breath, trouble breathing, nausea, vomiting, diarrhea, constipation or other symptoms. No known drug allergies. ROS All systems reviewed and are negative except as per history of present illness. Medications Home Meds Active Scripts Acetaminophen* (Tylophen*) 500 Mg Capsule, 1 CAP PO Q6H PRN for PAIN AND OR ELEVATED TEMP, #20 CAP Prov:ROLANDO ALMARAZ PA-C 11/29/18 Pseudoephedrine Hcl (Sudafe 12-Hour) 120 Mg Tablet.er, 120 MG PO BID PRN for CONGESTION for 5 Days, TAB.SA Prov:ROLANDO ALMARAZ PA-C 11/29/18 Amoxicillin/Potassium Clav (Amox-Clav 875-125 mg Tablet) 875-125 mg Tab, 1 TAB PO BID for 10 Days, #20 TAB Prov:ROLANDO ALMARAZ PA-C 11/29/18 Reported Medications Vits W-Ca,Fe,Fa(<1MG) () 1 Tab Tablet, 1 TAB PO DAILY 10/09/12 Allergies Allergies: Coded Allergies: No Known Allergies (Verified Allergy, 10/09/12) PMhx/Soc Medical and Surgical Hx: pt denies Medical Hx, pt denies Surgical Hx Hx Alcohol Use: No Hx Substance Use: No Hx Tobacco Use: No Smoking Status: Never smoker Physical Exam Vitals Vital Signs Date Temp Pulse Resp B/P (MAP) Pulse Ox O2 O2 Flow FiO2 Time Delivery Rate 11/29/18 100.7 113 18 113/75 94 13:57 (88) Physical Exam Physical Exam Vitals signs: Reviewed by me. General: Well developed, well nourished, in no acute distress. Patient is awake and alert. Head: Normocephalic, atraumatic. Eyes: Normal conjunctiva, Pupils PERRLA, EOM intact grossly ENT: Pharynx is clear, Moist mucous membranes, external ears, nose and mouth normal, no tonsillar adenopathy, exudate or erythema, no kissing tonsils, there is moderate tenderness to percussion of left maxillary sinus, left tympanic membrane is visualized and is bulging and erythematous, right tympanic membrane is normal, nontender with percussion of right maxillary sinus Neck: Supple, no masses, lymphadenopathy or JVD Respiratory: Clear to auscultation bilaterally with no wheezing, rhonchi, rales, no distress Cardiovascular: Regular heart rate and rhythm with no gallops rubs Neurologic: Alert and oriented, moving all extremities, normal speech, no focal weakness, no cerebellar signs. Normal mentation Skin: warm and dry, No rash Psych: Normal mood Procedures/MDM ER COURSE: The patient was stable throughout ED course. I kept the patient and/or family informed of laboratory and diagnostic imaging results throughout the emergency room course. The patient was promptly evaluated and a treatment plan was devised based on H&P and other data. This plan was discussed with the patient who agreed and had no further questions or concerns prior to discharge. MEDICAL DECISION MAKING: This is a 33-year-old female presents ED with left ear pain and left sinus pain times 5 days. Given history and physical this is likely sinusitis and a left otitis media. No evidence of ENT emergency including the not limited to retro pharyngeal abscess, peritonsillar abscess, Ludwigs, epiglottitis, mastoiditis. No evidence of sepsis or meningitis. Patient's vitals are stable she can be managed outpatient with close follow-up. Advised patient follow up with primary care in 48 hours. Return to ED with any worsening symptoms DISPOSITION PLAN: We discussed follow up with the patient's primary care doctor within 24 to 48 hours. Patient counseled regarding my diagnostic impression and care plan. Prior to discharge all questions answered. Pt agrees with treatment plan and understands strict return precautions. Precautionary instructions provided including instructions to return to the ER if not improving or for any worsening or changing symptoms or concerns. ExitCare instructions provided. Prior to discharge, patients vital signs have been reviewed SPECIALIST FOLLOW UP RECOMMENDED: None Patient has been advised to follow up with primary care in 1-2 days. Disclaimer: Inadvertent spelling and grammatical errors are likely due to EHR/dictation software use and do not reflect on the overall quality of patient care. Also, please note that the electronic time recorded on this note does not necessarily reflect the actual time of the patient encounter. Departure Diagnosis: Primary Impression: Left otitis media Otitis media type: unspecified Qualified Codes: H66.92 - Otitis media, unspecified, left ear Additional Impression: Sinusitis Sinusitis location: unspecified location Chronicity: unspecified Qualified Codes: J32.9 - Chronic sinusitis, unspecified Condition: Stable Patient Instructions: Otitis Media, Abx Tx (Adult), Sinusitis, Abx Tx [facility] Usted se payne hecho un examen mdico de control que le indica que no est en zoe condicin que requiera tratamiento urgente en el Departamento de Emergencia. Un estudio ms profundo y el tratamiento de cuenca condicin pueden esperar sin ningn riesgo hasta que usted sea atendida/o en el consultorio de cuenca mdico o zoe clnica. Es responsabilidad suya arreglar zoe vincenzo para el seguimiento del leslie. MANEJO DE CONDICIONES NO URGENTES EN EL FUTURO 1) Si usted tiene un mdico de atencin primaria: Usted debera llamar a cuenca mdico de atencin primaria antes de venir al departamento de emergencia. Despus de las horas de consultorio, cuenca doctor o cuenca asociado/a est disponible por telfono. El mdico o enfermero de sid en el servicio telefnico puede asesorarle por crystal medio para atender el problema, o leslie contrario se puede programar zoe vincenzo. 2) Si usted no tiene un mdico de atencin primaria: Llame al mdico o clnica de referencia que aparece abajo lima las horas de consultorio para hacer zoe vincenzo para que le vean. CLINICAS: [facility] [phone] [facility] [phone] [place] [facility] [phone] [facility] [phone] [facility] [phone] [address] [facility] [phone] [address] Additional Instructions: Paciente aconseja volver a Departamento de urgencias inmediatamente para sntomas nuevos o que empeoran . Paciente aconseja posteriores con el PCP en 1-2 joseph . Paciente verbaliza la comprehensin y est de acuerdo con el tratamiento y el curso de accin. Si el paciente no tiene ninguna de atencin primaria pueden seguir con [facility] [phone] [place] [address] o [facility] + [address] [phone] ROLANDO ALMARAZ PA-C Nov 29, 2018 15:56
== END 2018-11-29 15:58 | disposition home or self-care (01) ==
LOC: FTE 13:42
DX: H66.92 Otitis media, unspecified, left ear (principal); J32.9 Chronic sinusitis, unspecified
CPT/HCPCS: 99283